=== PATIENT | female | born 1965 | race Caucasian/White ===

== ENCOUNTER 2022-07-04 08:29 | Emergency (ER) | payer MEDICAID, OTHER ==
[~2022-07-04] VITALS: Ht 172.7 cm; Wt 98.0 kg
[2022-07-04] MEDS ORDERED: ONDANSETRON HCL 4MG/2ML INJ IV STA (08:40)
[2022-07-04] MEDS ORDERED: MECLIZINE 25MG TABLET PO ONE (08:45)
[2022-07-04] MEDS ORDERED: SODIUM CHLORIDE 0.9% 1,000 ML IV ONE (08:45)
[2022-07-04 09:32] LABS: BASOPHILS % 0.3 % (0.0-2.0); EOSINOPHILS % 1.3 % (0.0-5.0); HEMATOCRIT. 40.1 % (36.0-48.0); HEMOGLOBIN. 13.3 g/dL (12.0-16.0); LYMPHOCYTES % 28.2 % (20.0-50.0); MEAN CORPUSCULAR HEMOGLOBIN 29.2 pg (28.0-32.0); MEAN CORPUSCULAR VOLUME 87.9 fL (81.0-99.0); MONOCYTES % 5.9 % (2.0-8.0); NEUTROPHILS % 64.3 % (40.0-76.0); PLATELET 272 x1000/uL (130-400); RED BLOOD CELL COUNT 4.56 mill/uL (4.2-5.4); RED CELL DISTRIBUTION WIDTH 14.4 % (11.6-14.6)
[2022-07-04 09:47] LABS: CHLORIDE 109 mEq/L (98-107)
[2022-07-04] MEDS ORDERED: KETOROLAC 30MG/ML VIAL IV ONE (11:00)
[2022-07-04] MEDS ORDERED: METOCLOPRAMIDE HCL 10MG/2ML VIAL IV ONE (11:00)
[2022-07-04] MEDS ORDERED: ACETAMINOPHEN 325MG TABLET PO PRN (15:15)
[2022-07-04] MEDS ORDERED: CLONIDINE 0.1MG TABLET PO PRN (15:15)
[2022-07-04] MEDS ORDERED: IPRATROPIUM/ALBUTEROL 0.5-3(2.5)MG/3ML NEB HHN PRN (15:15)
[2022-07-04] MEDS ORDERED: DIPHENHYDRAMINE 50MG/ML VIAL IV PRN (15:15)
[2022-07-04] MEDS ORDERED: MECLIZINE 25MG TABLET PO PRN (15:15)
[2022-07-04] MEDS ORDERED: ONDANSETRON HCL 4MG/2ML INJ IV PRN (15:15)
[2022-07-04] MEDS ORDERED: SODIUM CHLORIDE 0.9% 1,000 ML IV SCH (15:30)
[2022-07-04 16:40] VITALS: BP 131/69
== END 2022-07-04 17:37 | disposition home or self-care (01) ==
LOC: ER 08:29 → EDBEDREQ 13:05 → EDBEDREQTM 13:05 → ER 17:37 → CANBEDREQ 07-05 08:06
DX: R42 Dizziness and giddiness (principal); R11.2 Nausea with vomiting, unspecified
CPT/HCPCS: 36415; 70450; 71045; 80053; 83880; 84484; 85025; 93005; 96361; 96374; 96375; 99285; J1885; J2405; J2765; J7030; J8597